=== PATIENT | female | born 1995 | race Caucasian/White ===

== ENCOUNTER 2019-11-02 15:20 | Emergency (ER) | payer BC ==
[~2019-11-02] VITALS: Ht 170 cm; Wt 95.2 kg
[~2019-11-02 15:20] MED LIST: SULF1TAB35 PO
--- OUTSIDE RECORDS SUMMARY | 2019-11-02 15:25 | XMS REPORT | Clinical Summary ---
Author Author [facility] Organization [facility] Address Unknown Phone Unavailable Care Team Providers Care Air Quality Technician Name Role Phone Sudarshan Stanton MD PCP Allergies Comments Active Allergy Reactions Severity Noted Date Cefaclor Rash Low 05/05/2011 Hives CECLOR Cefaclor MOTHER IS ALLERGIC-ANAPHYLAXIS Iodinated Diagnostic 05/05/2011 Agents Medications End Date Status Medication Sig Dispensed Refills Start Date Active Multiple Vitamin Take 1 tablet 0 (MULTIVITAMIN by mouth PO)Indications: daily. SUPPLEMENT Indications: SUPPLEMENT Active valACYclovir (VALTREX) Take 500 mg 0 500 MG tablet by mouth 2 (two) times daily. Active cephALEXin (KEFLEX) 500 Take 500 mg 0 MG capsule by mouth 4 (four) times daily. Active Problems Not on file Immunizations Name Administration Dates Next Due DTaP 07/18/2002, 01/14/1998, , 01/03/1997, 1996 Hepatitis A, Ped/adol, 2 05/25/1999, 11/20/1998, 02/1999 dose Hepatitis B, NOS 05/25/1999, 10/22/1998, 01/1997 HiB (PRP-T) 01/14/1998, 05/01/1997, , 1996 IPV 07/18/2002 MMR 05/02/2008, 01/14/1998, Polio,NOS (WebIZ 01/14/1998, 01/03/1997, registry) Tdap 02/16/2011 Varicella (Varivax) 10/22/1998 Family History Medical History Relation Name Comments Other Other Mother - MARIELLA Other Other Father - Hypertensi on; Cancer, thyroid Relation Name Status Comments Father Alive Mother Alive Other Other Social History Date Tobacco Use Types Packs/Day Years Used Never Assessed Drinks/Week oz/Week Comments Alcohol Use No Sex Assigned at Date Recorded Not on file Industry Job Start Date Occupation Not on file Not on file Not on file Travel End Travel History Travel Start No recent travel history available. Last Filed Vital Signs Reading Time Taken Comments Vital Sign 105/57 05/17/2011 3:45 PM SAMPLE STITCHER Blood Pressure 94 05/17/2011 3:45 PM [employer]ER Pulse 36.4 C (97.6 F) 05/17/2011 2:45 PM SAMPLE STITCHER Temperature 18 05/17/2011 3:45 PM SAMPLE STITCHER Respiratory Rate 100% 05/17/2011 3:45 PM SAMPLE STITCHER Oxygen Saturation - - Inhaled Oxygen Concentration 61 kg (134 lb 8 oz) 05/17/2011 11:00 AM SAMPLE STITCHER Weight 170.2 cm (5' 7") 05/17/2011 11:00 AM SAMPLE STITCHER Height 21.07 05/17/2011 11:00 AM SAMPLE STITCHER Body Mass Index Plan of Treatment Health Maintenance Due Date Last Done Comments HPV Vaccines (1 - 2-dose 08/20/2007 series) Varicella Vaccines (2 of 05/30/2008 10/22/1998 2 - 2-dose childhood series) Cervical Cancer Screening 2017 Influenza Vaccine (Season 01/14/2020 Ended) DTaP,Tdap,and Td Vaccines 02/16/2021 02/16/2011, (7 - Td) 07/18/2002, 01/14/1998, Additional history exists MMR Vaccines-Adult Completed 05/02/2008, 01/14/1998, 04/28/1997 MenB Vaccine (Bexsero) Aged Out No longer eligi ble based on patient's age to complete this topic Pneumo-Vaccine: Peds (0-5 Aged Out No longer el igible based on patient's age to Yrs) & At-Risk Patients complete this topic (6-64 Yrs) Results Not on filefrom Last 3 Months
--- OUTSIDE RECORDS SUMMARY | 2019-11-02 15:25 | XMS REPORT ---
Author Author Niko Niko. paper machine back [employer] [facility] [place] [facility] [employer] Address [address] [address] Care Team Providers Care Drupal Php Developer Name Role Phone DAYDAY CHRISTIANSON Unavailable Unavailable NO, LOCAL PHYSICIAN Unavailable Unavailable XANDER WICK Unavailable Unavailable [facility] Unavailable Unavailable [facility] Unavailable Unavailable Unavailable Unavailable [place] Unavailable Unavailable [place] Unavailable Unavailable Unavailable Unavailable Unavailable Unavailable Unavailable Unavailable Allergies No Information Medications The data below is from unstructured sourcesNo Known Medications Problems No Information Procedures The data below is from unstructured sources Procedure Coding System Code Date Office Visit, Est Pt., Level 3 CPT-4 73271 May 06, 2015 Procedure Coding System Code Date Office Visit, New Pt., Level 4 CPT-4 25757 Mar 05, 2015 No known history of procedures. Immunizations Normalized Immunization Date Notes Care Provider Facili ty Immunization varicella virus 09-25-2018 no information no name [facility] ([id number]) Results Test Name Value Interpretation Reference Range Date Time Fa cility (Normalized) (Normalized) (Medline Reference) not yet categorized on null Exp date Positive (no code) [facility] ([id number]) Injected by 04/03~LW[place]vel (no code) [facility] ([id number]) Lot # [id number] (no code) [facility] ([id number]) Site 10/02/19~3:05~rig (no code) [facility] ht inner forearm [facility] ([id number]) not yet categorized on 2019-07-17 Control Negative (no code) [facility] ([id number]) Exp date 03/22/2022 (no code) [facility] ([id number]) Lot # [id number] (no code) [facility] ([id number]) Vital Signs The data below is from unstructured sources Vital Response Date/Time Temperature (Fahrenheit) 98 degrees F (97.6 - 99.5) 03/28/2015 4:59pm Temperature Source Temporal 03/28/2015 4:59pm Pulse Rate (Adolescent 12-19yrs) 100 bpm (56 - 106) 03/28/2015 4:59pm Respiratory Rate (Adolescent 12-19yrs) 18 bpm (15 - 20) 03/28/2015 4:59pm Blood Pressure / Blood Pressure Systolic (Adolescent 12-19yrs) 144 mm Hg (115 - 120) 03/28/2015 4:59pm Pain Pain Intensity 5 2014 4:59pm Height (Feet) 5 feet 4:59pm Height (Inches) 7 inches 03/28/2015 4:59pm Height (Calculated Centimeters) 170. 803761 cm 03/28/2015 4:59pm Weight (Pounds) 180 pounds 03/28/2015 4:59pm Weight (Calculated Kilograms) 81.646 627 kilograms 03/28/2015 4:59pm Calculated BMI 28.19 4:59pm Interventions No Information Plan of Treatment The data below is from unstructured sources Discharge Date 03/28/15 5:43pm Disposition 01 HOME, SELF-CARE Condition at Discharge Stable Instructions/Education Provided Cell ulitis (DC) Prescriptions See Medication Section Referrals NO,LOCAL PHYSICIAN - Prima Care Physician Additional Instructions/Education 1. Antibiotics as directed 2. Return to ER for any worsening if thi s doubles in size or if you develop fevers 3. Follow-up with your regular doctor ne xt week for recheck All discharge instructions reviewed with patient and/or family. Voiced understanding. Goals No Information Social History No Information Functional Status The data below is from unstructured sourcesNo functional status results. Mental Status No Information Encounters Encounter Normalized Encounter Encounter Diagnosis Care Provi monika Organization Date Type 10-08-2019 Patient encounter no information [facility] [place] (no [facility] - procedure phone) [place] (no phon e) 10-08-2019 10-02-2019 Patient encounter no information XANDER WICK ( no [facility] phone[facility] (no phone) [facility] (no phone) 07-17-2019 Patient encounter no information XANDER WICK ( no [facility] procedure phone) (no phone) [facility] (no phone) 11-08-2018 Patient encounter no information no name no or ganization name - procedure 11-08-2018 09-25-2018 Patient encounter no information no name no or ganization name procedure Medical Equipment No Information Payers No Information Summary Purpose eClinicalWorks SubmissioneClinicalWorks Submission Advance Directives Directive Response Recor ded Date/Time Advance Directives No 5:02pm Resuscitation Status Full Code 03/28/15 5:02pm Discharge Instructions No hospital discharge instructions. Additional Source Comments This clinical document has been generated using [employer] software that has been certified by the Office of the National Coordinator for Health Information Technology (ONC 15.99.04.3023.Diam.31.00.0.569289) and the National Committee for Wind Operations Manager (NCQA, as an eMeasure certified technology). FOR RECORDS PERTAINING TO PATIENTS WHO ARE OR HAVE BEEN ENROLLED IN A CHEMICAL D EPENDENCY/SUBSTANCE ABUSE PROGRAM, SOME INFORMATION MAY BE OMITTED. This clinica l summary was aggregated from multiple sources. Caution should be exercised in using it in the provision of clinical care. This summary normalizes information from multiple sources, and as a consequence, information in this document may ma terially change the coding, format and clinical context of patient data. In nick tion, data may be omitted in some cases. CLINICAL DECISIONS SHOULD BE BASED ON T HE PRIMARY CLINICAL RECORDS. [employer] provides no warranty or guara ntee of the accuracy or completeness of information in this document.The followi ng information is based on time limited clinical information
--- OUTSIDE RECORDS SUMMARY | 2019-11-02 15:26 | XMS REPORT | Continuity of Care Document ---
Author Organization Unknown Address Unknown Phone Unavailable Allergies Active Description Code Type Severity Reaction Onset Reported/Identified Relationship to Patient Clinical Status Yes Cefaclor X588 Drug Allergy Unknown N/A 11/21/2011 Yes Cefaclor X588 Drug Allergy Unknown RASH, HIVES 03/23/2014 Yes cefaclor [id number] Drug Allergy Unknown N/A 03/28/2015 Medications There is no data. Problems Date Dx Coded Attending Type Code Diagnosis Diagnosed By 03/23/2014 aTmara Zepeda 658.13 04/18/2014 Tamara Zepeda 659.71 04/18/2014 Tamara Zepeda 663.31 04/18/2014 Tamara Zepeda V22.0 04/18/2014 Tamara Zepeda V27.0 04/30/2014 Shamar Brambila 787.01 04/30/2014 Shamar Brambila 788.0 04/30/2014 Shamar Brambila 789.01 05/09/2014 RICARDO CRONIN V45.79 05/09/2014 RICARDO CRONIN V58.75 05/12/2014 RICARDO CRONIN V45.79 05/12/2014 RICARDO CRONIN V58.75 05/13/2014 RICARDO CRONIN V45.79 05/13/2014 RICARDO CRONIN V58.75 05/21/2014 RICARDO CRONIN V45.79 05/21/2014 RICARDO CRONIN V58.75 05/22/2014 Emeterio Ramos 57 6.2 05/22/2014 Emeterio Ramos V45.79 05/22/2014 Emeterio Ramos V67.59 05/24/2014 Emeterio Ramos 57 6.2 05/24/2014 Emeterio Ramos W V45.79 05/24/2014 Emeterio Ramos W V67.59 06/05/2014 Emeterio Ramos A 57 6.2 06/05/2014 Emeterio Ramos W V45.79 06/05/2014 Emeterio Ramos W V67.59 03/28/2015 ELLIOTT UMANZOR APRN Ot L03.311 Procedures Code Description Performed By Per formed On 74.1 04/14/2014 Results There is no data. Encounters ACCT No. Visit Date/Time Discharge Status Pt. Type Provider Facility Loc./Unit Complaint [id number] 10/02/2019 15:00:00 10/02/2019 23:59: 59 [facility] [address] [id number] 05/14/2014 13:43:00 4 23:59:59 CLS Outpatient Emeterio Ramos [facility] COL.RAD [id number] 04/30/2014 05:56:00 4 09:30:00 DIS Emergency Shamar Brambila [facility] COL.ER [id number] 04/14/2014 21:10:00 4 18:20:00 DIS Inpatient Goodpasture, Tamara [facility]. OB [id number] 04/15/2014 15:37:00 4 23:59:59 CLS Preadmit Goodpasture, Tamara [facility]. LDR [id number] 03/23/2014 12:48:00 4 15:20:00 DIS Outpatient Goodpasture, Tamara [facility]. LDRO [id number] 01/24/2014 11:47:00 4 14:13:00 DIS Emergency [id number] 03/28/2015 16:55:00 015 17:43:00 DIS Emergency ELLIOTT UMANZOR APRN [facility] ER [id number] 05/06/2014 08:21: 4 23:59:59 CLS Outpatient RICARDO CRONIN [facility] LAB
--- OUTSIDE RECORDS SUMMARY | 2019-11-02 15:26 | XMS REPORT ---
Author Author Gwendolyn CHRISTIANSON [facility] eClinicalWorks Address Unknown Phone Unavailable Care Team Providers Care Industrial Waste Inspector Name Role Phone DAYDAY CHRISTIANSON CP Unavailable Allergies, Adverse Reactions, Alerts Substance Reaction Event Type Cefaclor hives Drug Allergy Problems Problem Type Condition Code Onset Dates Condition Statu s Assessment Upper respiratory infection J06.9 Active Medications Medication Code System Code Instructions Start Date End Date Status Dosage PredniSONE [facility] [address]-02 10 MG Orally Once a day May 06 5 May 11, 2015 as directed Procedures Procedure Coding System Code Date Office Visit, Est Pt., Level 3 CPT-4 77996 D 2014 Vital Signs Date/Time: May 06, 2015 Temperature 98.4 F Weight 207.5 lbs Height 65 in BMI 34.53 Index Blood Pressure Diastolic 72 mmHg Blood Pressure Systolic 114 mmHg Cardiac Monitoring Heart Rate 88 bpm BMIPercentile 97.38 % Wt Percentile 98.03 % Results No Known Results Summary Purpose eClinicalWorks Submission
--- OUTSIDE RECORDS SUMMARY | 2019-11-02 15:26 | XMS REPORT ---
Author Author Gwendolyn CHRISTIANSON [facility] eClinicalWorks Address Unknown Phone Unavailable Care Team Providers Care Business Intelligence Manager Name Role Phone DAYDAY CHRISTIANSON CP Unavailable Allergies, Adverse Reactions, Alerts Substance Reaction Event Type Cefaclor hives Drug Allergy Problems Problem Type Condition Code Onset Dates Condition Statu s Assessment Physical exam Z00.00 Active Medications No Known Medications Procedures Procedure Coding System Code Date Office Visit, New Pt., Level 4 CPT-[address] 2014 Vital Signs Date/Time: Mar 05, 2015 Temperature 98.0 F BMIPercentile 97.19 % Weight 203.8 lbs Height 65 in BMI 33.91 Index Blood Pressure Diastolic 70 mmHg Blood Pressure Systolic 108 mmHg Cardiac Monitoring Heart Rate 104 bpm Wt Percentile 97.81 % Ht Percentile 61.56 % Results No Known Results Summary Purpose eClinicalWorks Submission
--- NOTE | 2019-11-02 16:28 | Diagnostic Imaging Report ---
PROCEDURE: CT head without contrast. TECHNIQUE: Multiple contiguous axial images were obtained through the brain without the use of intravenous contrast. Auto Exposure Controls were utilized during the CT exam to meet ALARA standards for radiation dose reduction. INDICATION: Pressure behind left eye x 2 weeks. Visual disturbances. COMPARISON: None. FINDINGS: No intracranial hemorrhage, mass effect, hydrocephalus or extra-axial fluid collection. No CT evidence of a territorial infarction. Osseous structures are intact. The visualized paranasal sinuses and mastoids are clear. IMPRESSION: Negative head CT. Dictated by: Dictated on workstation # [id number]
[2019-11-02] MEDS ORDERED: NS IV 500 ML 500 ML IV ONE (16:36)
[2019-11-02] MEDS ORDERED: KETOROLAC 30 MG/ML VIAL IVP ONE (16:45)
--- NOTE | 2019-11-02 16:50 | ED Headache ---
General Chief Complaint: Head/Cervical Problems Stated Complaint: L EYE PAIN/PRESSURE,CANT SEE OUT OF EYE Nursing Triage Note: patient complaint of migraine behind left eye x2 weeks. states blury vision in left eye started this morning. painful to touch area. Nursing Sepsis Screen: No Definite Risk Source: patient Exam Limitations: no limitations History of Present Illness Date Seen by Provider: Nov 02, 2019 Time Seen by Provider: 16:19 Initial Comments Pt presents to ER by POV with 2 weeks of left temporal and behind the eye constant headache. No History of Migraines. Painful to look to the left. Nausea occ without vomiting. No fever or chills. APAP and Ibuprofen made no difference. No significant med history. LMP 3 weeks ago. Tubal ligation. No abd pain, chest pain, dysuria, discharge, diarrhea. No double vision. Today she has decreased vision. She wears contacts but stopped those two days ago. She stopped her phen teramine two days ago. She called her rn employee health neptali and he told her to come here. Goes to [facility] as needed. Allergies and Home Medications Allergies Coded Allergies: cefaclor (Verified Allergy, Unknown, 03/28/15) Home Medications Sulfamethoxazole/Trimethoprim 1 Each Tablet, 1 EACH PO BID Prescribed by: ELLIOTT UMANZOR on 03/28/15 9563 Patient Home Medication List Home Medication List Reviewed: Yes Review of Systems Review of Systems Constitutional: No chills, No diaphoresis Eyes: Denies Blindness, Denies Blurred Vision, Denies Drainage; Vision Changes, Contact Lenses Ears, Nose, Mouth, Throat: denies ear pain, denies ear discharge, denies nose pain, denies nose discharge Respiratory: No cough, No short of breath Cardiovascular: No chest pain, No edema, No syncope Gastrointestinal: No abdominal pain; nausea; No vomiting Genitourinary: No discharge, No dysuria Musculoskeletal: No back pain, No joint pain Skin: No pruritus, No rash All Other Systems Reviewed Negative Unless Noted: Yes Past Jjutskt-Dwizmi-Nkuybw Hx Patient Social History Alcohol Use: Denies Use Recreational Drug Use: No Smoking Status: Never a Smoker 2nd Hand Smoke Exposure: No Recent Foreign Travel: No Contact w/Someone Who Travel: No Recent Infectious Disease Expo: No Physical Abuse: No Sexual Abuse: No Mistreated: No Past Medical History Surgeries: Yes Appendectomy Cardiac: No Neurological: No Gastrointestinal: No Cancer: No Psychosocial: No Physical Exam Vital Signs Vital Signs - First Documented 11/02/19 15:35 Temp 37.0 Pulse 100 Resp 18 B/P (MAP) 131/93 (106) Pulse Ox 100 O2 Delivery Room Air Capillary Refill : Less Than 3 Seconds Height, Weight, BMI Height: 5'7" Weight: 180lbs. oz. 81.946792jr; 32.00 BMI Method: General Appearance: WD/WN, mild distress HEENT: PERRL/EOMI, normal ENT inspection, TMs normal, pharynx normal, other (worsening pain on leteral gave to the left. Left Voodoo tender to tap. Fundoscopic exam shows no F/O, tumor, cell and flare, etc. ) Neck: non-tender, full range of motion, supple, normal inspection Cardiovascular: normal peripheral pulses, regular rate, rhythm Respiratory: lungs clear, normal breath sounds, no respiratory distress, no accessory muscle use Gastrointestinal: normal bowel sounds, non tender Extremities: normal range of motion, normal inspection, normal capillary refill Psychiatric: alert, oriented x 3 Crainal Nerves: normal hearing, normal speech, PERRL Coordination/Gait: normal finger to nose, normal gait Motor/Sensory: no motor deficit, no sensory deficit Skin: normal color, warm/dry Progress/Results/Core Measures Results/Orders Lab Results Laboratory Tests Test 11/02/19 17:00 Range/Units White Blood Count 8.3 4.3-11.0 10^3/uL Red Blood Count 4.79 4.35-5.85 10^6/uL Hemoglobin 13.3 11.5-16.0 G/DL Hematocrit 39 35-52 % Mean Corpuscular Volume 82 80-99 FL Mean Corpuscular Hemoglobin 28 25-34 PG Mean Corpuscular Hemoglobin Concent 34 32-36 G/DL Red Cell Distribution Width 12.9 10.0-14.5 % Platelet Count 327 130-400 10^3/uL Mean Platelet Volume 11.3 H 7.4-10.4 FL Neutrophils (%) (Auto) 66 42-75 % Lymphocytes (%) (Auto) 26 12-44 % Monocytes (%) (Auto) 7 0-12 % Eosinophils (%) (Auto) 1 0-10 % Basophils (%) (Auto) 0 0-10 % Neutrophils # (Auto) 5.5 1.8-7.8 X 10^3 Lymphocytes # (Auto) 2.1 1.0-4.0 X 10^3 Monocytes # (Auto) 0.6 0.0-1.0 X 10^3 Eosinophils # (Auto) 0.1 0.0-0.3 10^3/uL Basophils # (Auto) 0.0 0.0-0.1 10^3/uL Erythrocyte Sedimentation Rate 19 0-20 MM/HR Sodium Level 139 135-145 MMOL/L Potassium Level 4.0 3.6-5.0 MMOL/L Chloride Level 108 H 98-107 MMOL/L Carbon Dioxide Level 19 L 21-32 MMOL/L Anion Gap 12 5-14 MMOL/L Blood Urea Nitrogen 11 7-18 MG/DL Creatinine 0.86 0.60-1.30 MG/DL Estimat Glomerular Filtration Rate > 60 BUN/Creatinine Ratio 13 Glucose Level 83 70-105 MG/DL Calcium Level 9.3 8.5-10.1 MG/DL Corrected Calcium 9.1 8.5-10.1 MG/DL Total Bilirubin 0.3 0.1-1.0 MG/DL Aspartate Amino Transf (AST/SGOT) 33 5-34 U/L Alanine Aminotransferase (ALT/SGPT) 40 0-55 U/L Alkaline Phosphatase 65 40-136 U/L C-Reactive Protein High Sensitivity 0.42 0.00-0.50 MG/DL Total Protein 8.0 6.4-8.2 GM/DL Albumin 4.2 3.2-4.5 GM/DL My Orders Orders - MIGUEL ANGEL HIDALGO Ct Head Wo (11/02/19 15:40) Ketorolac Injection (Toradol Injection) (11/02/19 16:45) Ed Iv/Invasive Line Start (11/02/19 16:36) Ns Iv 500 Ml (Sodium Chloride 0.9%) (11/02/19 16:36) Cbc With Automated Diff (11/02/19 16:36) Comprehensive Metabolic Panel (11/02/19 16:36) Hs C Reactive Protein (11/02/19 16:36) Erythrocyte Sedimentation Rate (11/02/19 16:36) Medications Given in ED Current Medications Medications Dose Ordered Sig/Vikram Route Start Time Stop Time Status Last Admin Dose Admin Ketorolac Tromethamine 30 mg ONCE ONCE IVP 11/02/19 16:45 11/02/19 16:46 DC 11/02/19 17:19 30 MG Sodium Chloride 500 ml @ 0 mls/hr Q0M ONCE IV 11/02/19 16:36 11/02/19 16:38 DC 11/02/19 17:19 0 MLS/HR Vital Signs/I&O 11/02/19 15:35 Temp 37.0 Pulse 100 Resp 18 B/P (MAP) 131/93 (106) Pulse Ox 100 O2 Delivery Room Air Blood Pressure Mean: 106 Progress Progress Note #1: Time: 16:57 Progress Note 20/40 Left, 20/40 right, 20/[address] head unremarkable. Labs including CRP and ESR. If normal then I would have her get MRI outpt and F/U with [facility]. Not classic for a Migraine. Toradol 30 mg IV and 500cc NS. No Nausea at this time. Progress Note #2: Time: 17:49 Progress Note Pt DICKEY not gone but improved. No N/V. No deterioration during stay. Discussed opiates and she declined. Labs unremarkable. Plan outpt MRI next. Counseled return precautions and patient is in agreement with the plan. Diagnostic Imaging Diagonstic Imaging: CT (without contrast) Comments [facility] [place] NAME: ULICES OLIVER MED REC#: [id number] PT STATUS: REG ER : 1995 PHYSICIAN: MIGUEL ANGEL HIDALGO MD ADMIT DATE: 11/02/19/ER Draft Date of Exam:11/02/19 CT HEAD WO PROCEDURE: CT head without contrast. TECHNIQUE: Multiple contiguous axial images were obtained through the brain without the use of intravenous contrast. Auto Exposure Controls were utilized during the CT exam to meet ALARA standards for radiation dose reduction. INDICATION: Pressure behind left eye x 2 weeks. Visual disturbances. COMPARISON: None. FINDINGS: No intracranial hemorrhage, mass effect, hydrocephalus or extra-axial fluid collection. No CT evidence of a territorial infarction. Osseous structures are intact. The visualized paranasal sinuses and mastoids are clear. IMPRESSION: Negative head CT. Dictated on workstation # [id number] Dict: 11/02/19 1622 Trans: 11/02/19 1628 [facility] [id number] Interpreted by: DAWN PAREDES MD Electronically signed by: Reviewed: Reviewed by Me Departure Impression Primary Impression: Headache above the eye region Disposition: HOME, SELF-CARE Condition: Stable Departure-Patient Inst. Decision time for Depature: 17:42 Referrals: [facility]/ [place],LOCAL PHYSICIAN (PCP) Primary Care Physician Patient Instructions: Headache, Adult (DC) Add. Discharge Instructions: Call Monday to Scheduling and setup MRI with contrast of the head. You may need to see your primary care provider at [facility] to help set this up. Schedule Follow up with your doctor for results. Return to the ER for worsening symptoms. Ondansetron under the tongue every 4 hours as needed for nausea. tylenol 1000 mg every 8 hours as needed for headache. Naproxen 500 mg every 12 hours for headache. All discharge instructions reviewed with patient and/or family. Voiced understanding. Scripts Ondansetron (Ondansetron Odt) 4 Mg Tab.rapdis 4 MG PO Q6H PRN for NAUSEA/VOMITING, #8 TAB 0 Refills Prov: MIGUEL ANGEL HIDALGO 11/02/19 Copy Copies To 1: FAWN BURCIAGA DO MIGUEL ANGEL HIDALGO Nov 02, 2019 16:50
[2019-11-02 17:11] LABS: BASOPHILS % (AUTO) 0 % (0-10); EOSINOPHILS # (AUTO) 0.1 10^3/uL (0.0-0.3); EOSINOPHILS % (AUTO) 1 % (0-10); HEMATOCRIT 39 % (35-52); HEMOGLOBIN 13.3 G/DL (11.5-16.0); LYMPHOCYTES # (AUTO) 2.1 X 10^3 (1.0-4.0); LYMPHOCYTES % (AUTO) 26 % (12-44); MEAN CORPUSCULAR HEMOGLOBIN 28 PG (25-34); MEAN CORPUSCULAR HGB CONC 34 G/DL (32-36); MEAN CORPUSCULAR VOLUME 82 FL (80-99); MEAN PLATELET VOLUME 11.3 FL (7.4-10.4); MONOCYTES # (AUTO) 0.6 X 10^3 (0.0-1.0); MONOCYTES % (AUTO) 7 % (0-12); NEUTROPHILS # (AUTO) 5.5 X 10^3 (1.8-7.8); NEUTROPHILS % (AUTO) 66 % (42-75); PLATELET COUNT 327 10^3/uL (130-400); RED CELL DISTRIBUTION WIDTH 12.9 % (10.0-14.5); WHITE BLOOD COUNT 8.3 10^3/uL (4.3-11.0)
[2019-11-02 17:32] LABS: ALANINE AMINOTRANSFERASE 40 U/L (0-55); ALBUMIN 4.2 GM/DL (3.2-4.5); ALKALINE PHOSPHATASE 65 U/L (40-136); BILIRUBIN,TOTAL 0.3 MG/DL (0.1-1.0); BUN/CREATININE RATIO 13; CALCIUM 9.3 MG/DL (8.5-10.1); CARBON DIOXIDE 19 MMOL/L (21-32); CHLORIDE 108 MMOL/L (98-107); CREATININE SERUM 0.86 MG/DL (0.60-1.30); GFR ESTIMATED > 60; GLUCOSE 83 MG/DL (70-105); SODIUM 139 MMOL/L (135-145)
[2019-11-02 17:33] LABS: ERYTHROCYTE SEDIMENTATION RATE 19 MM/HR (0-20)
[2019-11-02] MEDS ORDERED: ONDA4TAB11 PO (17:46)
[2019-11-02 17:50] VITALS: BP 131/93
[2019-11-02] MEDS ORDERED: RX-HYDROCODONE/APAP 5/325 MG #4 TAB PK PO ONE (17:57)
== END 2019-11-02 17:55 | disposition home or self-care (01) ==
LOC: EDUNIT# 15:20 → ER 15:21
DX: R51 Headache (principal); Z88.1 Allergy status to other antibiotic agents
CPT/HCPCS: 36415; 70450; 80053; 85025; 85652; 86141